=== PATIENT | male | born 1950 | race Two or more races ===

== ENCOUNTER 2017-11-25 08:27 | Outpatient (CLI) | payer OTHER | END 2017-11-25 08:39 | disposition home or self-care (01) | LOC: TOM 08:27 | DX: S09.90XA Unspecified injury of head, initial encounter (principal) ==

== ENCOUNTER 2017-12-13 09:10 | Outpatient (CLI) | payer OTHER | END 2017-12-13 09:25 | disposition home or self-care (01) | LOC: SONOGRAMA 09:10 | DX: M25.521 Pain in right elbow (principal) ==

== ENCOUNTER 2018-01-31 07:29 | Outpatient (CLI) | payer OTHER | END 2018-01-31 07:36 | disposition home or self-care (01) | LOC: SONOGRAMA 07:29 | DX: K82.4 Cholesterolosis of gallbladder (principal) ==

== ENCOUNTER → 2019-02-12 | Emergency (ER) | payer OTHER ==
[~2019-02-12] VITALS: Ht 167.6 cm; Wt 83.0 kg
[~2019-02-12] MED LIST: CARVEDILOL12.5 MG; DIMISTA; GLIPIZIDE XL10 MG; LISINOPRIL20 MG; METFORMIN HCL500 M3; SINGULAIR5 MG; [UNRECOGNIZED DRUG - OTHER]
== END | disposition left against medical advice (07) ==
LOC: ER 19:39
DX: Z53.20 Procedure and treatment not carried out because of patient's decision for unspecified reasons (principal)